=== PATIENT | male | born 1955 | race Caucasian/White ===

== ENCOUNTER → 2016-11-09 | Outpatient (CLI) | payer OTHER ==
[~2016-11-09] MED LIST: AMOX875T PO; DIAZ10TA PO; DLD2 PO; LIDO5DIS10; [UNRECOGNIZED DRUG - OTHER] TOP; tylenol sinus PO
--- NOTE | 2016-11-09 16:39 | DIAGNOSTIC IMAGING REPORT ---
LUMBAR SPINE MRI HISTORY: BILATERAL LEG PAIN TECHNIQUE: Multiplanar multisequence MRI of the lumbar spine was performed without the use of contrast. COMPARISON: Lumbar spine MRI 06/25/2014. FINDINGS: For the purpose of the report the L5-S1 disc space will be located on axial image 37 of 39. This is consistent with the prior report. L5 is demonstrated to be a transitional vertebra with sacralization of the transverse processes. The conus terminates at T12. Posterior decompression and posterior and anterior fusion from L1 through L3 is again noted. This remains unchanged. No fracture or subluxation. Mild to moderate disc space narrowing at L4-L5 is again noted. Mild posterior soft tissue edema from the L2-L4 levels remains unchanged. There is again noted a 2 cm cyst within the left kidney. L1-L2: No significant central canal or neural foraminal narrowing. L2-L3: No significant central canal or neural foraminal narrowing. L3-L4: Broad-based posterior disc bulge with facet hypertrophy resulting in mild central canal and mild bilateral neural foraminal narrowing. L4-L5: Broad-based posterior disc bulge with facet hypertrophy resulting in mild central canal and mild bilateral neural foraminal narrowing. L5-S1: No significant central canal or neural foraminal narrowing. IMPRESSION: 1. No change compared to the 2013 examination. 2. Fusion hardware from L1 through L3. 3. Mild central canal and mild bilateral neural foraminal narrowing at L3-L4 and L4-L5 is again noted. Electronically signed by: Alban Hurst M.D. 11/09/2016 4:37 PM Dictated Date/Time: 11/09/2016 4:17 PM
== END | disposition home or self-care (01) ==
LOC: C.MRI 15:25
PROVIDERS: ATTEND Orthopaedic Surgery Orthopaedic Surgery of the Spine
DX: M79.604 Pain in right leg (principal)

== ENCOUNTER 2020-02-22 13:51 | Observation (INO) ==
[2020-02-22] MEDS ORDERED: NALOXONE HCL 0.4 MG/1 ML VIAL/CARP ONE (14:01)
--- NOTE | 2020-02-22 14:10 | CT Scan Report ---
CT SCAN OF THE BRAIN WITHOUT IV CONTRAST CLINICAL HISTORY: Slurred speech. Difficulty with ambulation. COMPARISON STUDY: No priors. TECHNIQUE: Unenhanced axial CT scan of the brain is performed from the vertex to the skull base. A d ose lowering technique was utilized adhering to the principles of ALARA. CT DOSE: 614.27 mGy.cm FINDINGS: Brain parenchyma: The brain parenchyma is normal in appearance. There is no hemorrhage, mass effect, or evidence of acute territorial ischemia by CT criteria. Bautista-white matter differentiation is preser dorian. No extra-axial fluid collection is seen. Ventricles, sulci, cisterns: Normal in configuration. Intracranial vasculature: The visualized intracranial vasculature at the skull base is normal in appe arance. Calvarium: Unremarkable. Sinuses and mastoids: The visualized paranasal sinuses are clear. The mastoid air cells are well pneu matized. Orbits: The bony orbits are grossly intact. There is evidence of previous left ocular lens surgery. IMPRESSION: There is no hemorrhage, mass effect, or evidence of acute territorial ischemia by CT len caldwell. ACT 112: Negative or not required by law. Electronically signed by: Roel Ribera M.D. 02/22/2020 2:09 PM
[2020-02-22 14:24] LABS: Hematocrit (blood only) 43.5 % (42-52); Hemoglobin 14.9 g/dL (14.0-18.0); Mean Corpuscular Hemoglobin 30.7 pg (25-34); Mean Corpuscular Hgb Conc 34.3 g/dL (32-36); Mean Corpuscular Volume 89.5 fL (80-100); Mean Platelet Volume 9.3 fL (7.4-10.4); Platelet Count 230 K/uL (130-400); RDW Coefficient of Variation 13.2 % (11.5-14.5); RDW Standard Deviation 43.3 fL (36.4-46.3); Red Blood Count 4.86 M/uL (4.7-6.1); White Blood Count 7.07 K/uL (4.8-10.8)
--- NOTE | 2020-02-22 14:30 | XRay Report ---
XR chest 1V portable HISTORY: Weakness COMPARISON: Chest 01/23/2020. FINDINGS: The lungs are clear. Cardiac silhouette is normal in size. No pleural effusions. No pneumot horax. IMPRESSION: No acute process. ACT 112: Negative or not required by law. Electronically signed by: Alban Hurst M.D. 02/22/2020 2:29 PM
[2020-02-22 14:33] LABS: iSTAT Ionized Calcium 1.23 mmol/l (1.12-1.32); iSTAT Potassium 4.1 mmol/L (3.3-5.0)
[2020-02-22 14:35] LABS: Partial Thromboplastin Ratio 0.9; Partial Thromboplastin Time 26.5 Seconds (21.0-31.0); Prothrombin Time 10.9 Seconds (9.0-12.0)
[2020-02-22 14:42] LABS: Alanine Aminotransferase 49 U/L (12-78); BUN Creatinine Ratio 12.9 (10-20); Blood Urea Nitrogen 14 mg/dl (7-18); Carbon Dioxide 26 mmol/L (21-32); Chloride 109 mmol/L (98-107); Est GFR (African American) 83.3; Est GFR (Non-African American) 71.9; Glucose 104 mg/dl (70-99); Magnesium 2.2 mg/dl (1.8-2.4); Sodium 141 mmol/L (136-145)
[2020-02-22 14:45] LABS: Albumin Globulin Ratio 1.1 (0.9-2); Alkaline Phosphatase 53 U/L (45-117); Aspartate Aminotransferase 21 U/L (15-37); Bilirubin,Total 0.6 mg/dl (0.2-1); Globulin 3.7 gm/dl (2.5-4.0); Total Protein 7.7 gm/dl (6.4-8.2)
[2020-02-22] MEDS ORDERED: LORazepam 2 MG/4 ML VIAL ONE (14:45)
--- NOTE | 2020-02-22 15:03 | Emergency Department Note ---
Impression & Plan Seizure-like activity, Acute alteration in mental status ED Provider Note NAME: KRISTIAN COLINDRES AGE: 64 SEX: M : 1955 ARRIVES VIA: Walk-In INFORMANT: Patient, ED PROVIDER(S): Juan King DO CHIEF COMPLAINT: Altered mental status HPI: The patient is a 64-year-old male who presented to the emergency department with his significant other via triage for an evaluation of altered mental status. The patient was made a stroke alert in triage and taken directly to CAT scan prior to my evaluation. The patient does have a history of osteomyelitis in his spine. He does take chronic pain medication although he states he is not been taking his pain medication in approximately 1 week. His significant other also gives most of the history and states that the patient has had a work-up for neurologic events in the past. He has had intermittent episodes over the last few months. He has had EEGs as well as MRIs but no cause for his complaints could be found. The patient was in his normal state of health until prior to arrival. He started having episodes of difficulty speaking. He appeared to have spasms on the left side of his body according to his significant other. He also had a very high pulse rate. The patient had questionable seizure activity prior to arrival. Upon arrival to the emergency department in my evaluation he was awake and alert. His strength appeared to be diminished globally and not unilaterally. He denies having any headaches. He states that he "just does not feel right". He complains of an electrical sensation going through his entire body. He has had no recent falls. He denies having any fever cough or chills. ROS: See above HPI for pertinent positives & negatives. A total of 10 systems reviewed and were otherwise negative. PAST MEDICAL HISTORY: See Below PAST SURGICAL HISTORY: See Below FAMILY HISTORY: See Below SOCIAL HISTORY: See Below HOME MEDICATIONS: See Below ALLERGIES: See Below VITALS: See Below PHYSICAL EXAMINATION: GENERAL: The patient is awake and alert. He is very anxious appearing. EYES: The conjunctivae are clear. The pupils are round and reactive. EARS, NOSE, MOUTH AND THROAT: The nose is without any evidence of any deformity. Mucous membranes are moist. Tongue is midline. NECK: The neck is nontender and supple. RESPIRATORY: Normal respiratory effort is noted there is no evidence of wheezing rhonchi or rales CARDIOVASCULAR: Regular rate and rhythm noted there no murmurs rubs or gallops normal S1 normal S2. GASTROINTESTINAL: The abdomen is soft. Abdomen is nontender. MUSCULOSKELETAL/EXTREMITIES: There is no evidence of gross deformity full range of motion is noted in the hips and shoulders. SKIN: There is no obvious evidence of any rash. Trace pedal edema was noted bilaterally. NEUROLOGIC: Patient is awake alert and oriented x3. Healthcare Management strength is symmetric. Patient is able to hold each leg off the bed for greater than 5 seconds but appears to have muscle spasming in both legs when he holds his legs up. There is no facial droop noted. MEDICAL DECISION MAKING: The patient is a 64-year-old male who presented to the emergency department for an evaluation of acute alteration in his mental status. The patient was made a stroke alert from triage and taken directly to CT. I initially discussed his case with the stroke neurologist at [facility] however they felt the patient would not be a candidate for TPA. They did recommend further work-up in the emergency department. The patient was unable to have CT angiography but plain CT did not show any acute disease. The patient's symptoms continue to wax and wane and while he was in the emergency department I feel these were more likely due to a possible seizure disorder. According to his significant other he did have a work-up for seizure in the past including MRI as well as EEG. I discussed the patient's laboratory and radiographic studies with him and his significant other. He was found to have further episodes while he was in the emergency department. For this reason he was treated with Ativan as well as treated with Keppra. I discussed his case with the on-call [facility] hospitalist group. They have agreed to evaluate the patient in the emergency department for further management and disposition. Triage Nursing notes reviewed. Prior medical records reviewed Vital Signs: reviewed and remarkable for no significant abnormalities Differential diagnosis: Infection, dehydration, metabolic abnormality, hypo/hyperglycemia, electrolyte disturbance, anemia, hypoxia, cardiac sources, intracerebral event, toxicologic, neurologic, as well as other pathologies. ER treatment provided: See below Diagnostics interpreted by me: ECG: EKG was obtained in the emergency department. My interpretation is normal sinus rhythm at 80 bpm. There is no ectopy. There is no acute ST segment abnormalities noted. This was compared to a tracing from April [id number]. No significant changes were noted. Cardiac Monitoring: An order was placed for continuous cardiac monitoring. The monitor shows a rate of 85 with sinus rhythm. Laboratory studies: As stated above and show below. Imaging studies: See below Consultation(s): 1415: I discussed this case with the [place] tele-stroke neurologist Dr. Ray. She feels the patient would not be a TPA candidate given the seizure activity as well as the intermittent symptoms recently. She feels the patient may require further inpatient work-up based on our evaluation today. 1600: I discussed this case with Rayna who is on-call for the [facility] hospitalist group. ED COURSE: Procedures: none PDMP:reviewed and no issues Critical Care: None Past Med/Surg History Medical History Benign prostatic hyperplasia (Inactive) Chronic pain [place]nea transplant recipient History of osteomyelitis History of prostatitis S/P ORIF (open reduction internal fixation) fracture Right leg Surgical History H/O inguinal hernia repair History of lumbar spinal fusion Family History Father Thyroid cancer Lung cancer Mother COPD (chronic obstructive pulmonary disease) Social History Smoking Status: Former smoker Tobacco Type: Cigarettes Second Hand Exposure: No; Do You Dip or Chew Tobacco: No; Tobacco Cessation Education Requested by Patient: No Hx Alcohol Use: No Hx Substance Use: No Preferred Language: Senegalese Communication Ability: Effective Beliefs That Will Affect Care: None Current Living Situation: Spouse Other Information That Helps Us Care for You: No Feels Safe at Home: Yes Safety Concerns: Feels Safe At This Time Allergies Allergies Allergy/AdvReac Type Severity Reaction Status Date / Time Iodinated Contrast Media Allergy Intermediate Shortness Unverified 02/22/20 14:22 of Breath Home Meds Home Medications Medication Instructions Recorded Confirmed hydromorphone 2 mg PO QID PRN 01/23/20 02/22/20 prednisolone acetate 1 drp OPL QAM 01/23/20 02/22/20 Smarty Pants Gummies 1 tab PO BID 02/22/20 02/22/20 Results & Data (ED) Vital Signs Vital Signs - 24 hr 02/22/20 13:55 02/22/20 14:10 02/22/20 14:12 Temperature 37 C Temperature Source Oral Pulse Rate 78 85 Pulse Rate from SpO2 Sensor Respiratory Rate 24 20 Blood Pressure 157/95 H Blood Pressure Mean 114 Pulse Oximetry Oxygen Delivery Method Room Air Sepsis Recent Fever Within 48 Hours No Sepsis New/Unexplained Change in Mental Status No Sepsis Action Taken by Nursing No Action Required 02/22/20 14:30 02/22/20 14:58 02/22/20 15:00 Temperature Temperature Source Pulse Rate 77 69 69 Pulse Rate from SpO2 Sensor Respiratory Rate 22 27 H 22 Blood Pressure 136/85 138/84 Blood Pressure Mean 106 102 Pulse Oximetry Oxygen Delivery Method Sepsis Recent Fever Within 48 Hours Sepsis New/Unexplained Change in Mental Status Sepsis Action Taken by Nursing 02/22/20 15:01 02/22/20 15:03 02/22/20 15:30 Temperature Temperature Source Pulse Rate 73 68 Pulse Rate from SpO2 Sensor 68 Respiratory Rate 18 19 Blood Pressure 135/85 Blood Pressure Mean 94 Pulse Oximetry 97 Oxygen Delivery Method Room Air Sepsis Recent Fever Within 48 Hours Sepsis New/Unexplained Change in Mental Status Sepsis Action Taken by Nursing 02/22/20 15:31 Temperature Temperature Source Pulse Rate 69 Pulse Rate from SpO2 Sensor 71 Respiratory Rate 26 H Blood Pressure Blood Pressure Mean Pulse Oximetry 96 Oxygen Delivery Method Sepsis Recent Fever Within 48 Hours Sepsis New/Unexplained Change in Mental Status Sepsis Action Taken by Skilled Nursing Medications Current Medication List: was personally reviewed by me Laboratory Data Attestation: I reviewed the patient's lab results. Result diagrams: 02/22/20 14:12 02/22/20 14:12 Lab Results 02/22/20 02/22/20 02/22/20 Range/Units 14:12 14:12 14:12 WBC 7.07 (4.8-10.8) K/uL RBC 4.86 (4.7-6.1) M/uL Hgb 14.9 (14.0-18.0) g/dL POC Hgb (14.0-18.0) g/dl Hct 43.5 (42-52) % POC Hct (42-52) % MCV 89.5 (80-100) fL MCH 30.7 (25-34) pg MCHC 34.3 (32-36) g/dL RDW Std Deviation 43.3 (36.4-46.3) fL RDW Coeff of Contreras 13.2 (11.5-14.5) % Plt Count 230 (130-400) K/uL MPV 9.3 (7.4-10.4) fL PT 10.9 (9.0-12.0) Seconds INR 1.0 (0.9-1.1) APTT 26.5 (21.0-31.0) Seconds PTT Ratio 0.9 POC Sodium (135-144) mmol/L Sodium 141 (136-145) mmol/L POC Potassium (3.3-5.0) mmol/L Potassium 4.0 (3.5-5.1) mmol/L POC Chloride (101-112) mmol/L Chloride 109 H (98-107) mmol/L Carbon Dioxide 26 (21-32) mmol/L POC Total CO2 (24-31) mmol/L Anion Gap 6.0 (3-11) POC Anion Gap (16-25) mmol/L POC BUN (7-18) mg/dl BUN 14 (7-18) mg/dl Creatinine 1.09 (0.6-1.4) mg/dl POC Creatinine (0.6-1.3) mg/dl Est Cr Clr Drug Dosing Not Reportable Est GFR ( Amer) 83.3 Est GFR (Non-Af Amer) 71.9 BUN/Creatinine Ratio 12.9 (10-20) Glucose 104 H (70-99) mg/dl POC Glucose (other) (70-99) mg/dl Calcium 9.0 (8.5-10.1) mg/dl POC Ioniz Calcium Nina (1.12-1.32) mmol/l Magnesium 2.2 (1.8-2.4) mg/dl Total Bilirubin 0.6 (0.2-1) mg/dl AST 21 (15-37) U/L ALT 49 (12-78) U/L Alkaline Phosphatase 53 (45-117) U/L Total Protein 7.7 (6.4-8.2) gm/dl Albumin 4.0 (3.4-5.0) gm/dl Globulin 3.7 (2.5-4.0) gm/dl Albumin/Globulin Ratio 1.1 (0.9-2) 07/24/20 Range/Units 14:20 WBC (4.8-10.8) K/uL RBC (4.7-6.1) M/uL Hgb (14.0-18.0) g/dL POC Hgb 15.0 (14.0-18.0) g/dl Hct (42-52) % POC Hct 44 (42-52) % MCV (80-100) fL MCH (25-34) pg MCHC (32-36) g/dL RDW Std Deviation (36.4-46.3) fL RDW Coeff of Contreras (11.5-14.5) % Plt Count (130-400) K/uL MPV (7.4-10.4) fL PT (9.0-12.0) Seconds INR (0.9-1.1) APTT (21.0-31.0) Seconds PTT Ratio POC Sodium 142 (135-144) mmol/L Sodium (136-145) mmol/L POC Potassium 4.1 (3.3-5.0) mmol/L Potassium (3.5-5.1) mmol/L POC Chloride 103 (101-112) mmol/L Chloride (98-107) mmol/L Carbon Dioxide (21-32) mmol/L POC Total CO2 22 L (24-31) mmol/L Anion Gap (3-11) POC Anion Gap 22.0 (16-25) mmol/L POC BUN 15 (7-18) mg/dl BUN (7-18) mg/dl Creatinine (0.6-1.4) mg/dl POC Creatinine 1.0 (0.6-1.3) mg/dl Est Cr Clr Drug Dosing Est GFR ( Amer) Est GFR (Non-Af Amer) BUN/Creatinine Ratio (10-20) Glucose (70-99) mg/dl POC Glucose (other) 109 H (70-99) mg/dl Calcium (8.5-10.1) mg/dl POC Ioniz Calcium Nina 1.23 (1.12-1.32) mmol/l Magnesium (1.8-2.4) mg/dl Total Bilirubin (0.2-1) mg/dl AST (15-37) U/L ALT (12-78) U/L Alkaline Phosphatase (45-117) U/L Total Protein (6.4-8.2) gm/dl Albumin (3.4-5.0) gm/dl Globulin (2.5-4.0) gm/dl Albumin/Globulin Ratio (0.9-2) Administered Medications Discontinued Medications Levetiracetam 2,000 mg/ Sodium (Chloride) 270 mls @ 999 mls/hr IV NOW STA Stop: 02/22/20 15:07 Last Infusion: 02/22/20 15:48 Dose: 0 mls/hr Documented by: [id number] Admin: 02/22/20 15:23 Dose: 999 mls/hr Documented by: [id number] Lorazepam (Ativan) Confirm Administered Dose 2 mg .ROUTE .STK-MED ONE Stop: 02/22/20 14:46 Last Admin: 02/22/20 14:51 Dose: 1 mg Documented by: [id number] Miscellaneous (Patient's Height And/Or Weight Needed) 1 ea N/A Q2H KENZIE Stop: 03/23/20 17:59 Last Admin: 02/22/20 18:06 Dose: Not Given Documented by: [id number] Imaging Data Radiologist's Impression: CT SCAN OF THE BRAIN WITHOUT IV CONTRAST CLINICAL HISTORY: Slurred speech. Difficulty with ambulation. COMPARISON STUDY: No priors. TECHNIQUE: Unenhanced axial CT scan of the brain is performed from the vertex to the skull base. A dose lowering technique was utilized adhering to the principles of ALARA. CT DOSE: 614.27 mGy.cm FINDINGS: Brain parenchyma: The brain parenchyma is normal in appearance. There is no hemorrhage, mass effect, or evidence of acute territorial ischemia by CT cri teria. Bautista-white matter differentiation is preserved. No extra-axial fluid collection is seen. Ventricles, sulci, cisterns: Normal in configuration. Intracranial vasculature: The visualized intracranial vasculature at the skull base is normal in appearance. Calvarium: Unremarkable. Sinuses and mastoids: The visualized paranasal sinuses are clear. The mastoid air cells are well pneumatized. Orbits: The bony orbits are grossly intact. There is evidence of previous left ocular lens surgery. IMPRESSION: There is no hemorrhage, mass effect, or evidence of acute territorial ischemia by CT criteria. ACT 112: Negative or not required by law. Electronically signed by: Roel Ribera M.D. 02/22/2020 2:09 PM Dictated: 02/22/20 1405 Transcribed: 02/22/20 1405 XR chest 1V portable HISTORY: Weakness COMPARISON: Chest 01/23/2020. FINDINGS: The lungs are clear. Cardiac silhouette is normal in size. No pleural effusions. No pneumothorax. IMPRESSION: No acute process. ACT 112: Negative or not required by law. Electronically signed by: Alban Hurst M.D. 02/22/2020 2:29 PM Dictated: 02/22/20 1423 Transcribed: 02/22/20 1423 Blood Pressure Blood Pressure Findings: Normal blood pressure Discharge Plan Visit Data *Final* Discharge Date/Time: 02/22/20 17:18 Chief Complaint: Neuro Symptoms/Deficit Stated Complaint: POSSIBLE STROKE ED Provider: Juan King Discharge Problem: Seizure-like activity, Acute alteration in mental status Patient Disposition: Admitted As Inpatient Condition: Good Discharge Instructions Interventions: ED Discharge Assessment Last Done: 02/22/20 17:18
--- NOTE | 2020-02-22 16:12 | Electrocardiogram Report ---
Test Reason : Blood Pressure : / mmHG Vent. Rate : 080 BPM Atrial Rate : 080 BPM P-R Int : 180 ms QRS Dur : 086 ms QT Int : 348 ms P-R-T Axes : -03 070 029 degrees QTc Int : 401 ms Normal sinus rhythm Normal ECG When compared with ECG of 23-APR-2005 12:16, No significant change was found Confirmed by Juan Styles ([id number]) on 02/22/2020 4:12:23 PM Referred By: MD ARRIETA Confirmed By:Juan Styles
--- NOTE | 2020-02-22 17:11 | History & Physical Report ---
Date of Service February 22, 2020 Assessment & Plan (1) Seizure-like activity: -Admit to telemetry -Patient presenting from home for evaluation of seizure-like activity; " episodes" have been ongoing for the past few months however today was the first time patient had altered mental status -Outpatient work-up has included echo, EEG, brain MRI which were all unremarkable -Head CT today negative for acute findings -? Seizure disorder vs. anxiety vs. pseudoseizure -Received IV Keppra 2 g IV in the ED, will continue with Keppra 1 g IV twice daily for now -Seizure precautions -IV Ativan for breakthrough seizure -Neurology consult, case discussed with Dr. Chavarria who recommends repeating EEG and MRI (2) DVT prophylaxis: -SQ Lovenox History of Present Illness Chief Complaint: Seizure-like activity Primary Care Provider: Bashir Sanders DO 64-year-old male with PMH lumbar spinal fusion complicated by osteomyelitis in 2002, BPH, chronic pain, and other problems listed below who presents the ED for evaluation of seizure-like symptoms. Patient has been having " episodes" for the past few months. Patient reports his was diagnosed with influenza A in September and he shortly after developed similar symptoms and was suspected to have the same. Patient reports that since that time, he has been having episodes that he describes as a vibrating sensation all over his body followed by palpitations and hypertension, electrical shocks scattered over his body, and severe chills. Patient also notes having episodes while sleeping that he ends up on the floor. Patient denies any loss of bowel or bladder function. No tongue biting. Typically he has not had any altered mental status until today. Patient reports symptoms with sometimes follow eating. He felt as though maybe he had an allergy to barley malt. He is also seen in association with physical exertion. Patient had been on chronic oxycodone until August 2019 when this was changed to Dilaudid. Patient reports he typically only uses medication 2-3 times per week. He has not had any in about 1 week. He also had been on long- term Klonopin which was discontinued in August as well. Patient notes taking 1 dose of Klonopin a couple of weeks ago and reports he had no symptoms for 1 week. Today, patient reports he had climbed the stairs several times. Patient reports he does not remember anything following and his provides the rest of the history. She reports that her started to twitch his head to the left and became stiff all over. She reports his eyes had a glazed over look and he would not respond to her. She reports this lasted for about 10 minutes and then patient was able to talk to her. Patient then presented to the ED for further evaluation. He then had an additional 3-4 similar episodes while in the ER. Patient received Ativan 2 mg IV and was loaded with Keppra 2 g IV. Patient currently reports complete resolution of symptoms. Of note, patient's outpatient work-up has included echocardiogram, EEG (02/14/2020), brain MRI (02/18/2020) which were all unremarkable. Allergies Allergy/AdvReac Type Severity Reaction Status Date / Time Iodinated Contrast Media Allergy Intermediate Shortness Unverified 02/22/20 14 :22 of Breath Home Medications Home Medications Medication Instructions Recorded Confirmed Type hydromorphone 2 mg PO QID PRN 01/23/20 02/22/20 History prednisolone acetate 1 drp OPL QAM 01/23/20 02/22/20 History Smarty Pants Gummies 1 tab PO BID 02/22/20 02/22/20 History Past Med/Surg History Medical History Benign prostatic hyperplasia (Inactive) Chronic pain Cornea transplant recipient History of osteomyelitis History of prostatitis S/P ORIF (open reduction internal fixation) fracture Right leg Surgical History H/O inguinal hernia repair History of lumbar spinal fusion Family History Father Thyroid cancer Lung cancer Mother COPD (chronic obstructive pulmonary disease) Social History Smoking Status: Former smoker Tobacco Type: Cigarettes Second Hand Exposure: No; Do You Dip or Chew Tobacco: No; Tobacco Cessation Education Requested by Patient: No Hx Alcohol Use: No Hx Substance Use: No Preferred Language: Croatian Communication Ability: Effective Beliefs That Will Affect Care: None Current Living Situation: Spouse Other Information That Helps Us Care for You: No Feels Safe at Home: Yes Safety Concerns: Feels Safe At This Time Review of Systems Review of Systems: ROS per HPI, all other systems reviewed and negative Physical Exam Constitutional: WD/WN, vitals as above Eyes: PERRL, conjunctivae normal, anicteric sclerae ENMT: external ear and nose normal, oropharynx normal Respiratory: normal respiratory effort, lungs clear to auscultation Cardiovascular: Rate/Rhythm: regular rate and regular rhythm Vessels: normal peripheral pulses Extremities: no edema Gastrointestinal (Abdomen): normal bowel sounds, soft, nontender, no hepatosplenomegaly Musculoskeletal: no cyanosis or clubbing, extremities motor strength 5/5 Skin: no rashes, warm and dry Neurologic: PERRL, EOMI, accommodation nl, no face palsy, no dysarthria moves all extremities and awake; no focal motor deficits Motor/Sensory: no pronator drift Cranial Nerves: tongue midline Coordination: normal [id number] test and normal enhr-ah-[id number] test Psychiatric: A+Ox3, euthymic affect Results & Data Results & Data ([facility]) Vital Signs (Past 12 Hours) Vital Signs Temp Pulse Resp BP 02/22/20 15:01 73 18 02/22/20 15:00 69 22 138/84 02/22/20 14:58 69 27 H 136/85 02/22/20 14:30 77 22 02/22/20 14:12 85 20 02/22/20 14:10 78 24 157/95 H 02/22/20 13:55 37 C Laboratory Results Short CBC 02/22/20 Range/Units 14:12 WBC 7.07 (4.8-10.8) K/uL Hgb 14.9 (14.0-18.0) g/dL Hct 43.5 (42-52) % Plt Count 230 (130-400) K/uL BMP 02/22/20 14:12 Sodium 141 Potassium 4.0 Chloride 109 H Carbon Dioxide 26 BUN 14 Creatinine 1.09 Glucose 104 H Calcium 9.0 Liver Function 02/22/20 Range/Units 14:12 Total Bilirubin 0.6 (0.2-1) mg/dl AST 21 (15-37) U/L ALT 49 (12-78) U/L Alkaline Phosphatase 53 (45-117) U/L Albumin 4.0 (3.4-5.0) gm/dl Diagnostic Findings CXR IMPRESSION: No acute process. HEAD CT IMPRESSION: There is no hemorrhage, mass effect, or evidence of acute territorial ischemia by CT criteria. Code Status & VTE Plan VTE Prophylaxis Plan VTE Prophylaxis will be ordered: Yes Supervising Physician Co-Signing Physician Notes Attending addendum The patient was seen and examined in telemetry unit He has been complaining of seizure-like activities for a while Most of the time each episode of seizure-like activity happens to be after a meal A few of the episodes happened to be at night with falls from his bed without significant injury A typical episode starts in the head and then gradually involves the whole of the body in the form of shaking inside No loss of consciousness and no self injury and no postictal state Has been feeling a lot better following administration of Keppra in the emergency room On examination No apparent distress at rest Hemodynamically stable Chest-clear to auscultate bilaterally Heart-S1-S2, regular Abdomen-benign Extremities-negative for any edema 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
[2020-02-22] MEDS ORDERED: HYDROmorphone HCL 2 MG TAB PO PRN (17:39)
[2020-02-22] MEDS ORDERED: ACETAMINOPHEN 325 MG TAB PO PRN (17:39)
[2020-02-22] MEDS ORDERED: LORazepam 1 MG/2 ML VIAL IV PRN (17:39)
[2020-02-22] MEDS ORDERED: PATIENT'S HEIGHT AND/OR WEIGHT NEEDED SCH (18:00)
[2020-02-22] MEDS ORDERED: GADOBUTROL 65ML VIAL IV PRN (20:10)
--- NOTE | 2020-02-22 20:50 | Magnetic Resonance Report ---
MRI OF THE BRAIN COMBO CLINICAL HISTORY: Seizure. COMPARISON STUDY: CT of the brain dated 02/22/2020. TECHNIQUE: MRI of the brain was performed utilizing various T1 and T2-weighted sequences in the axial , sagittal, and coronal planes. Contrast-enhanced sequences were acquired following the administratio n of 9.5 cc of Gadavist. The examination is performed using the seizure protocol. FINDINGS: Brain parenchyma: There is mild subcortical and periventricular microangiopathic disease. There is no hemorrhage or mass effect. There is no restricted diffusion to suggest acute ischemia. No enhancing mass lesion is identified on the postcontrast images. Bautista-white matter differentiation is preserved. No extra-axial fluid collection is seen. The hippocampi are normal and symmetric. The cerebellar ton sils are normal in configuration. Ventricles, sulci, and cisterns: Normal in configuration. Pituitary and sella: Unremarkable. Intracranial vasculature: Normal flow voids are maintained at the skull base. Orbits: The bony orbits are grossly intact. Orbital contents are normal in appearance noting a left o cular lens implant. Sinuses and mastoids: Clear. Calvarium: Unremarkable. Cervical cord: Partially visualized cervical spinal cord is normal in morphology and signal intensity . IMPRESSION: No acute intracranial abnormality. ACT 112: Negative or not required by law. Electronically signed by: Roel Ribera M.D. 02/22/2020 8:48 PM
[2020-02-22] MEDS: levETIRAcetam 1,000 MG in 0.9 % SODIUM CHLORIDE 100 ML IV SCH (21:01)
[2020-02-22] MEDS: ENOXAPARIN INJ 40 MG/0.4 ML SYR SQ SCH (21:02)
[2020-02-23 06:07] LABS: Hematocrit (blood only) 42.8 % (42-52); Hemoglobin 14.5 g/dL (14.0-18.0); Mean Corpuscular Hemoglobin 30.4 pg (25-34); Mean Corpuscular Hgb Conc 33.9 g/dL (32-36); Mean Corpuscular Volume 89.7 fL (80-100); Mean Platelet Volume 9.3 fL (7.4-10.4); Platelet Count 219 K/uL (130-400); RDW Standard Deviation 42.9 fL (36.4-46.3); Red Blood Count 4.77 M/uL (4.7-6.1); White Blood Count 6.84 K/uL (4.8-10.8)
[2020-02-23 06:47] LABS: BUN Creatinine Ratio 13.2 (10-20); Calcium 8.4 mg/dl (8.5-10.1); Creatinine Clr Calc Pharmacy 88.3 ml/min; Est GFR (African American) 93.6; Est GFR (Non-African American) 80.7; Potassium 4.1 mmol/L (3.5-5.1)
--- NOTE | 2020-02-23 08:59 | Neurology Consultation ---
Date of Consultation February 23, 2020 Assessment & Plan (1) Seizure-like activity: Gui Webster is a 64 yo man w/ PMH of chronic pain on opiates, history of osteomyelitis of the spine, history of prostatitis, BPH, history of ORIF on right leg and recent work-up by [facility] for syncope who presents to [facility] for altered mental status and possible seizures. # Seizure like activity: strong suspicion for PNES/pseudoseizures particularly given semiology as witnessed by primary team, less likely frontal lobe epilepsy. There is also some c/f benzo seeking behavior given that he repeatedly asked for ativan or klonopin and endorsed that only this was helping with his symptoms of "internal tremors"/vibration sensation. - prolonged EEG captured one event; no EEG correlate suggesting PNES - semiology is now c/w seizure, but he did note to 2 people that he had a heada maría a/w events. Recommend starting depakote 250mg bid as this could help with any migrainous features - he needs outpatient neurology follow up (can be [facility] or [facility]) and referral to the EMU - if he re-presents to the ED for this same complaint in the near future, recommend that he be transferred to higher level of care for continuous EEG evaluation for spell classification Thank you for this interesting consult. Plan of care discussed with primary team. 120 minutes was spent in the care of this patient, including discussion with patient and primary team. Please call or text with questions. He is safe from a neurological standpoint for discharge. (2) History of osteomyelitis: History of Present Illness Attending Physician: Monty Blankenship MD History of Present Illness Gui Webster is a 64 yo man w/ PMH of chronic pain on opiates, history of osteomyelitis of the spine, history of prostatitis, BPH, history of ORIF on right leg and recent work-up by [facility] for syncope who presents to [facility] for altered mental status and possible seizures. Reports that he has a remote h/o ?arrest while having back surgery at [place] in early . Developed tics afterwards of head twisting that were eventually treated with klonopin. Reports that he was on this for 15 years or so until he was weaned off of it this past winter/spring starting in August 2019. He reports having flu in September 2019, after which he noted new onset episodes as described below. This vary in frequency and can occur multiple times per week and last anywhere from minutes to hours or days. He did have 3-4 episodes in the ED for which he received ativan and keppra; he reports that once the ativan wore off, he started to notice the vibration sensation and coldness going through his body again, despite the keppra. When interviewed this morning, kept asking to have ativan or klonopin as the "other medication" was not helping him much. Per report, Dr Blankenship witnessed one typical episode this afternoon where he closed his eyes, tightened his hands/arms/legs, with no loss of bowel/bladder/tongue biting noted. He did not respond to commands during the event and did not have a clear post-ictal period afterward. Krzysztof was unable to open his eyes or hands manually during the event. He currently has 1 type of spell (described in detail below). His current medications include: none. He has previously tried: klonopin (reports this was for tics, weaned off in August 2019) Most recent EEG (01/2020): normal awake EEG Prior MRI brain: Independently reviewed, MRI brain from 02/22/20 unremarkable, mild SVID, no acute or chronic infarcts, encephalomalacia or mesial temporal sclerosis noted. Prior EMU stay: No Seizure risk factors: unable to assess as he was so tangential during interview Unknown: , complications, NICU stay, IEP or intellectual disability as a child, history of meningitis or encephalitis, recurrent TBI with loss of consciousness, family history of epilepsy, history of febrile seizures, history of stroke or brain malformation, congenital epilepsy syndrome, history of drug or alcohol abuse Seizure description: 1) "Seizure": Description: feels vibration that starts in his head and spreads throughout his body (internal tremor) -> whole body cold sensation a/w blurry vision, palpitations, clamminess -> eyes closed, stiffening of his arms and legs for several minutes, no loss of bowel/bladder/tongue bitting, no clear post ictal period Frequency: once per week to multiple times per day Any recent changes: increasing frequency Triggers: malt barley Allergies Allergy/AdvReac Type Severity Reaction Status Date / Time Iodinated Contrast Media Allergy Intermediate Shortness Unverified 02/22/20 14:22 of Breath Home Medications Home Medications Medication Instructions Recorded Confirmed Type hydromorphone 2 mg PO QID PRN 01/23/20 02/22/20 History prednisolone acetate 1 drp OPL QAM 01/23/20 02/22/20 History Smarty Pants Gummies 1 tab PO BID 02/22/20 02/22/20 History Patient History Medical History Benign prostatic hyperplasia (Inactive) Chronic pain Cornea transplant recipient History of osteomyelitis History of prostatitis S/P ORIF (open reduction internal fixation) fracture Right leg Surgical History H/O inguinal hernia repair History of lumbar spinal fusion Family History Father Thyroid cancer Lung cancer Mother COPD (chronic obstructive pulmonary disease) Social History Smoking Status: Former smoker Tobacco Type: Cigarettes Second Hand Exposure: No; Do You Dip or Chew Tobacco: No; Tobacco Cessation Education Requested by Patient: No Hx Alcohol Use: No Hx Substance Use: No Preferred Language: Azeri Communication Ability: Effective Beliefs That Will Affect Care: None Current Living Situation: Spouse Other Information That Helps Us Care for You: No Feels Safe at Home: Yes Safety Concerns: Feels Safe At This Time Review of Systems Review of Systems: 14 point review of systems completed and negative except as in HPI. Exam (Neuro) Physical Exam: General Exam: GEN: NAD, sitting in bed. HEENT: No conjunctival injection, no rhinorrhea. CV: RRR, no peripheral edema PULM: Nonlabored respirations on room air. Neuro Exam: MS: Awake and Alert. Oriented to person, place, and date. Speech fluent and appropriate without dysarthria or paraphasic errors. Language intact including naming, comprehension, repetition. Cognition and memory grossly intact. Attention intact. No neglect. +tangential, grandiose thinking CN: Visual [place] full. No extinction to double simultaneous stimuli. No optic disc edema on fundoscopic exam. PERRLA OU. EOMI without nystagmus. Facial sensation intact to LT. Facial muscles full and symmetric. Hearing intact to conversation. Uvula midline with symmetric palatal elevation. Shoulder shrug normal. Tongue midline. MOTOR: Normal bulk and tone. No pronator drift. BUE strength 5/5 at deltoids, biceps, triceps, wrist flexors and extensors, and hand grasp bilaterally. BLE strength 5/5 at iliopsoas, hamstrings, quadriceps, tibialis anterior, and gastrocnemius bilaterally. REFLEXES: 1+ at biceps, triceps, brachioradialis, 1+ patella and absent Achilles bilaterally. Flexor plantar responses bilaterally. SENSORY: Intact to LT without extinction to double simultaneous stimuli. Vibration and pinprick intact throughout. COORDINATION: No dysmetria or ataxia on [id number] bilaterally. Normal Annel bilaterally. GAIT: deferred given physical status Results & Data ([facility]) Vital Signs (Past 12 Hours) Vital Signs Temp Pulse Resp BP Pulse Ox 02/23/20 08:13 36.4 C L 91 H 18 114/74 97 02/23/20 04:00 36.4 C L 70 18 120/79 96 02/22/20 23:48 36.5 C 77 18 130/81 96 PG Care Time/CCT Total # of Minutes Spent Total Time Spent with Patient: Total time spent is greater than 50% in coordination of care (as documented) at patient's floor/unit and/or counseling patient: Coding Level of Care Code 60404 Inpt Consult Level 5 Diagnoses Seizure-like activity R56.9 History of osteomyelitis Z87.39
[2020-02-23] MEDS: levETIRAcetam 1,000 MG in 0.9 % SODIUM CHLORIDE 100 ML IV SCH (09:21)
[2020-02-23] MEDS: prednisoLONE acetate 1% OP SUSP 5 ML BTL OP SCH (09:22)
[2020-02-23] MEDS ORDERED: lamoTRIgine 25 MG TAB PO SCH (10:15)
--- NOTE | 2020-02-23 13:27 | Psychiatric Consultation ---
Date of Consultation February 23, 2020 Impression / Recommendations Impression Dr. Blaise Golden was directly involved in review and discussion of the patient's case and participated in medical decision making regarding treatment recommendations. RECOMMENDATIONS: 02/22 - Psychiatric consultation requested by primary hospitalist team to evaluate patient for generalized anxiety. Pt admits to anxiety, but claims it is situational and related to recent medical complications. - Agree with recommendation for further neurological work-up. Patient's seizure-like events are reportedly being triggered by specific meals and heat/exercise. While there may be an atypical presentation to these episodes, psychogenic non-epileptic seizures are a diagnosis of exclusion and full neurological evaluation with continuous EEG monitoring would be recommended. Additional recommendations per neurology. - If no concern for abuse potential or contraindications present, could consider standing order for low-dose clonazepam for seizure prophylaxis and assist with any situational anxiety symptoms. Will defer this decision to primary team and neurology after patient's EEG is completed. - Supportive psychiatric recommendations at this time include utilization of prn melatonin to assist with stabilization and emphasizing regular sleep patterns. Also discussed potential to utilize low-dose buspirone for anxiety on an as needed basis (if not pursuing standing clonazepam as above), with potential to schedule the medication if beneficial. There is no criteria at this time to diagnose a formal generalized anxiety disorder, as both patient and deny anxiety outside of the context of these seizure-like events. Outpatient observations for the presence of a formal anxiety disorder can be completed once patient is more stable medically. - Please reach out to our service with any additional questions or updates. Psych History Identifying Data 64-year-old male admitted medically on 02/22/2020 with reported seizure-like activity. Pt admits to episodes of similar activity for several months, with unremarkable outpatient work-up but not resolution of symptoms. Psychiatric consultation requested by primary hospitalist team to evaluate patient for anxiety. Chief Complaint "I've just been having these episodes of seizures. They were gradual at the beginning, but have gotten progressively worse since September." History of Present Illness Gui Webster is a 64-year-old male admitted medically on 02/22/2020 after presenting to the ED follow-up seizure-like activity. It is reported that these events have been ongoing for several months, and work-up on an outpatient basis has been unremarkable. Pt was admitted for further work-up and psychiatric consultation was requested by primary hospitalist team for anxiety. Pt's case was reviewed with psychiatric nurse liaison, who initially spoke with patient and . Pt is cooperative with psychiatric assessment. His , Yulia, is present in the room and provides collateral information with patient's verbal consent. Pt shares with this provider that he began having episodes of strange sensations leading to seizure-like activity back in 09/2019. Pt states that symptoms were "gradual" at first, but have been worsening since that time. Pt admits to being a "type-A person" but otherwise denies anxiety at baseline. At this time, he and his report only anxiety related to these recent seizure-like events. Pt states these events have contributed to poor sleep. At this time, patient believes triggering events include eating meals containing certain foods/ingredients and exercise/heat. He reports some unusual sensations beginning prior to the seizure events - "feeling cold all of a sudden", "vibrating", "tachycardia", "head-popping", and he reports feeling tired afterward. Pt states that he has had several seizure-like events that have woken him from sleep. Pt denies a specific history of anxiety, but does admit to having seen a psychiatrist between [id number]. He reports low tolerance for new medications and reports that clonazepam was prescribed, not for psychiatric indications, but for "muscle spasms and back pain." Pt reports taking clonazepam for the past 15 years, and states the medication was discontinued in 08/2019. He does not specifically verbalize any withdrawal symptoms since stopping the medication, but states "it's clearly been masking all of this." Pt has numerous questions about medications and some rather elaborate theories about what may be causing these events. At one point, patient does mention feeling as though a "seizure" is about to occur, and states "I was supposed to tell the nurses so they could page the doctor." This provider offered several times to end our interview at this point so nursing/primary attending could be notified; however, he continued to talk about his symptoms and ask questions about various medications. Pt did suddenly demonstrate seizure-like, myoclonic activity of his neck, shoulder, bilateral arms, and even ankles/feet. This provider pressed call cruz and remained in the room to observe the event. Due to patient's scheduled EEG, no medication was administered. This provider attempted to engage patient in conversation during the event. After some hesitation, he was able to at least respond with his correct name, but did not respond to any additional questions asked by this provider. The event lasted about 45 seconds - 1 minute, before symptoms ended. Pt did become emotionally following the event, crying and repeatedly stating "I'm sorry, I'm sorry" and "what's wrong with me?" Primary attending was paged and was able to arrive shortly after the conclusion of the episode. Case was discussed further at that point. Pt denied additional needs or concerns. Past Psychiatric History Outpatient Services: None presently; previously seen by Dr. Gallo from 2004 - 2008 Previous Psych Admissions: None History of Previous Suicide Attempt: No Past Medication Trials: Per patient reports: Effexor and Klonopin (15 years). Allergies Allergy/AdvReac Type Severity Reaction Status Date / Time Iodinated Contrast Media Allergy Intermediate Shortness Unverified 02/22/20 14:22 of Breath Home Medications Home Medications Medication Instructions Recorded Confirmed Type hydromorphone 2 mg PO QID PRN 01/23/20 02/22/20 History prednisolone acetate 1 drp OPL QAM 01/23/20 02/22/20 History Smarty Pants Gummies 1 tab PO BID 02/22/20 02/22/20 History Family History No known family history of psychiatric diagnoses. Substance Abuse History Admits he is a former smoker. Denies use of other illicit substances. Personal History Living Arrangements: Home (with ) Highest Grade Completed: College (Degree in Accounting) Marital Status: (to of 36 years) Number Of Children: 2 adult children, 2 grandchildren Beliefs That Will Affect Care: None History of Legal Problems: Denied Psychological Trauma History Comment: Denied Patient History Medical History Benign prostatic hyperplasia (Inactive) Chronic pain Cornea transplant recipient History of osteomyelitis History of prostatitis S/P ORIF (open reduction internal fixation) fracture Right leg Surgical History H/O inguinal hernia repair History of lumbar spinal fusion Family History Father Thyroid cancer Lung cancer Mother COPD (chronic obstructive pulmonary disease) Social History Smoking Status: Former smoker Tobacco Type: Cigarettes Second Hand Exposure: No; Do You Dip or Chew Tobacco: No; Tobacco Cessation Education Requested by Patient: No Hx Alcohol Use: No Hx Substance Use: No Preferred Language: Yi Communication Ability: Effective Beliefs That Will Affect Care: None Current Living Situation: Spouse Other Information That Helps Us Care for You: No Feels Safe at Home: Yes Safety Concerns: Feels Safe At This Time Physical Exam Psychiatric: Orientation: alert, oriented x 3 and cooperative Apperance: appropriately dressed, appropriately groomed and appeared stated age Overweight-appearing male, laying in bed in no acute distress initially. Pt is appropriately dressed for setting, wearing a hospital gown with gym shorts underneath. He is appropriately and neatly groomed. Wearing corrective lenses. Level of hygiene and hydration appear appropriate. Eye Contact: good eye contact (with the exception of his seizure-like event) For most of encounter, patient demonstrated normal motor movements. Pt did experience a seizure-like event during our interview. Initially, patient's eyes were closed and he began to demonstrate myoclonic jerking of his neck, followed by contraction of his arms to his chest and jerking of hands and arms as well. Intermittently, patient's legs were observed to be more rigid with occasional muscle contractions of his feet. Speech: normal rate/rhythm/volume of speech (rambling, hyperverbal; but not necessarily pressured or rapid) Affect: euthymic affect Mood: + anxious mood ("This is anxiety-provoking, it's infuriating") Thought Process: goal directed thought process and + perseveration (developing complex theories to explain his seizure-like events) Thought Content: reality based without delusions; not paranoid, no hopelessness and no worthlessness Suicidal Thoughts: denies suicidal thoughts and denies suicidal intent Homicidal Thoughts: denies homicidal thoughts Hallucinations: no auditory hallucinations and no visual hallucinations Cognition: recent memory grossly intact, attention grossly intact and language grossly intact Estimated Intelligence: consistent with education level Insight: + fair insight Judgement: + fair judgement Vital Signs (Past 24 Hours): Last Vital Signs Temp 36.7 C 02/23/20 12:12 Pulse 78 02/23/20 12:12 Resp 18 02/23/20 12:12 BP 109/70 02/23/20 12:12 Pulse Ox 95 02/23/20 12:12 Review of Systems Constitutional: reports fatigue, poor sleep for the past week Cardiovascular: reports episodes of tachycardia "prodromal" to seizure-like activity Respiratory: denied Gastrointestinal: denied Neurological: reports numerous symptoms which patient believes to be associated with seizure-like events. Pt reports the following have occurred intermittently today: head ache/popping, tingling/popping of upper and lower extremities, Psychiatric: [denies symptoms other than stated above] Total of at least 10 systems reviewed, pertinent positives as above and in HPI. Results & Data (PSY) Medications Administered Enoxaparin Sodium (Lovenox) 40 mg SQ HS [facility] Stop: 03/23/20 20:59 Last Admin: 02/22/20 21:02 Dose: 40 mg Documented by: [id number] Gadobutrol (Gadavist 65ml) 9.5 ml IV ONCE PRN PRN Reason: Interaction Checking Stop: 02/26/20 20:09 Last Admin: 02/22/20 20:11 Dose: 9.5 ml Documented by: [id number] Lorazepam (Ativan) 1 mg in 2 mls @ 2 mls/min IV Q4H PRN PRN Reason: seizure Stop: 03/23/20 17:38 Last Admin: 02/22/20 23:18 Dose: 2 mls/min Documented by: [id number] Lamotrigine (Lamictal) 25 mg PO QAM [facility] Stop: 03/24/20 10:14 Last Admin: 02/23/20 10:37 Dose: 25 mg Documented by: [id number] Prednisolone Acetate (Pred Forte 1%) 1 drops OP [facility] Stop: 03/24/20 08:59 Last Admin: 02/23/20 09:22 Dose: 1 drops Documented by: [id number] Coding Level of Care Code 15303 [facility] Intl Hosp Care Lvl 3
--- NOTE | 2020-02-23 15:22 | Hospitalist Progress Note ---
Date of Service February 23, 2020 Assessment & Plan (1) Seizure-like activity: -Patient presenting from home for evaluation of seizure-like activity; " episodes" have been ongoing for the past few months however today was the first time patient had altered mental status -Outpatient work-up has included echo, EEG, brain MRI which were all unremarkable -On episode observed by me this afternoon (episodes of headache usually on the left side followed by flexural stiffness involving upper and lower extremities , neck stiffness with bending to one side and tightly closed eyes with possible loss of consciousness. Last for 30seconds to 45 seconds. Feels tired following that without any typical post ictal state. No self injury and no incontinence during these episodes.) -CT of the head and MRI of the head have been negative for any significant findings -Could be secondary to pseudoseizure, seizure disorder, generalized anxiety disorder, panic attacks -Episode is triggered my consuming malt Barley- has an appointment with [employer] as an op -Received IV Keppra 2 g IV in the ED and this was continued at 1 g IV twice daily until this morning of 02/23/2020 -Seizure precautions -[facility] neurologist Dr. Chavarria cannot see this patient -[facility], appreciate input and recommendation -Keppra has been discontinued and Lamictal was chosen and later on Depakote to 250 mg IV twice daily as suggested -No more Ativan -EEG for 1 hour -If there is no improvement of his condition,most likely he will be transferred to [place] as per the (2) History of osteomyelitis: History of lumbar spinal fusion and is complicated by osteomyelitis (3) Chronic pain: Recently has been on Dilaudid for pain control (4) History of lumbar spinal fusion: (5) Cornea transplant recipient: Admission and Anticipated Discharge Date Admission Date: February 22, 2020 Subjective The patient was seen and examined in telemetry unit He was feeling much better and did not have any more episodes while he was on Keppra Keppra has been off since this morning and he has been having episodes of attacks as has been going on as an outpatient He is tired and very most frustrated and so is his Review of Systems Review of Systems: All systems reviewed and are unremarkable except as noted below Neurologic: + abnormal movements (As mentioned below as documented in additional comments) Episodes of headache on the left side followed by flexure stiffness involving upper and lower extremities , neck stiffness with bending to one side and closing of the eyes. Last for 30seconds to 45 seconds. Feels tired following that. No self injury and no incontinence during these episodes. Physical Exam Physical Exam: Lying in bed very anxious Constitutional: well developed and well nourished; no acute distress and not ill appearing Eyes: PERRL, conjunctivae normal, anicteric sclerae ENMT: external ear and nose normal, oropharynx normal Neck: trachea midline, no thyromegaly Respiratory: normal respiratory effort; no respiratory distress Auscultation: lungs clear to auscultation bilaterally Cardiovascular: Rate/Rhythm: regular rate and regular rhythm Heart Sounds: no murmur Gastrointestinal (Abdomen): Inspection/Auscultation: abdomen normal to in spection and normal bowel sounds; abdomen not distended Percussion/Palpation: abdomen soft; abdomen nontender Musculoskeletal: No acute arthritis involving any joints Neurologic: moves all extremities; no focal motor deficits Alert, awake and oriented x3. Psychiatric: Affect: + anxious affect Mood: + anxious mood Results & Data Results & Data ([facility]) Vital Signs (Past 12 Hours) Vital Signs Temp Pulse Pulse Resp BP Pulse Ox 02/23/20 12:12 36.7 C 78 18 109/70 95 02/23/20 08:13 36.4 C L 91 H 18 114/74 97 02/23/20 08:00 68 02/23/20 04:00 36.4 C L 70 18 120/79 96 Laboratory Results Short CBC 02/23/20 Range/Units 05:39 WBC 6.84 (4.8-10.8) K/uL Hgb 14.5 (14.0-18.0) g/dL Hct 42.8 (42-52) % Plt Count 219 (130-400) K/uL BMP 02/23/20 05:39 Sodium 141 Potassium 4.1 Chloride 110 H Carbon Dioxide 25 BUN 13 Creatinine 0.99 Glucose 111 H Calcium 8.4 L Medications Administered Current Inpatient Medications Acetaminophen (Tylenol) 650 mg PO Q4H PRN PRN Reason: Pain or Fever Stop: 03/23/20 17:38 Enoxaparin Sodium (Lovenox) 40 mg SQ HS [facility] Stop: 03/23/20 20:59 Last Admin: 02/22/20 21:02 Dose: 40 mg Documented by: Gadobutrol (Gadavist 65ml) 9.5 ml IV ONCE PRN PRN Reason: Interaction Checking Stop: 02/26/20 20:09 Last Admin: 02/22/20 20:11 Dose: 9.5 ml Documented by: Hydromorphone HCl (Dilaudid) 2 mg PO QID PRN PRN Reason: Pain Stop: 03/07/20 17:38 Lorazepam (Ativan) 1 mg in 2 mls @ 2 mls/min IV Q4H PRN PRN Reason: seizure Stop: 03/23/20 17:38 Last Admin: 02/22/20 23:18 Dose: 2 mls/min Documented by: Valproic Acid 250 mg/ Dextrose 52.5 mls @ 55 mls/hr IV BID [facility] Stop: 03/24/20 15:59 Prednisolone Acetate (Pred Forte 1%) [facility] Stop: 03/24/20 08:59 Last Admin: 02/23/20 09:22 Dose: 1 drops Documented by:
[2020-02-23] MEDS: VALPROATE SOD 250 MG in DEXTROSE 5% 50 ML IV SCH ×2 (16:22→21:20)
--- NOTE | 2020-02-23 17:33 | Electroencephalogram ---
EEG Procedure Note Date of Service February 23, 2020 Start / End Times Start Time: 3pm End Time: 4pm Referring Physician Dr Blankenship History seizure like events Home Medication List Home Medications Medication Instructions Recorded Confirmed Type hydromorphone 2 mg PO QID PRN 01/23/20 02/22/20 History prednisolone acetate 1 drp OPL QAM 01/23/20 02/22/20 History Smarty Pants Gummies 1 tab PO BID 02/22/20 02/22/20 History Inpatient Medication List Enoxaparin Sodium (Lovenox) 40 mg SQ HS [facility] Stop: 03/23/20 20:59 Last Admin: 02/22/20 21:02 Dose: 40 mg Documented by: [id number] Gadobutrol (Gadavist 65ml) 9.5 ml IV ONCE PRN PRN Reason: Interaction Checking Stop: 02/26/20 20:09 Last Admin: 02/22/20 20:11 Dose: 9.5 ml Documented by: [id number] Lorazepam (Ativan) 1 mg in 2 mls @ 2 mls/min IV Q4H PRN PRN Reason: seizure Stop: 03/23/20 17:38 Last Admin: 02/22/20 23:18 Dose: 2 mls/min Documented by: [id number] Valproic Acid 250 mg/ Dextrose 52.5 mls @ 55 mls/hr IV BID [facility] Stop: 03/24/20 15:59 Last Admin: 02/23/20 16:22 Dose: 55 mls/hr Documented by: [id number] Prednisolone Acetate (Pred Forte 1%) 1 drops OP QAM [facility] Stop: 03/24/20 08:59 Last Admin: 02/23/20 09:22 Dose: 1 drops Documented by: [id number] Discontinued Medications Levetiracetam 2,000 mg/ Sodium (Chloride) 270 mls @ 999 mls/hr IV NOW STA Stop: 02/22/20 15:07 Last Infusion: 02/22/20 15:48 Dose: 0 mls/hr Documented by: [id number] Admin: 02/22/20 15:23 Dose: 999 mls/hr Documented by: [id number] Levetiracetam 1,000 mg/ Sodium (Chloride) 110 mls @ 440 mls/hr IV BID [facility] Stop: 03/23/20 20:59 Last Infusion: 02/23/20 09:46 Dose: 0 mls/hr Documented by: [id number] Admin: 02/23/20 09:21 Dose: 440 mls/hr Documented by: [id number] Infusion: 02/22/20 21:22 Dose: 0 mls/hr Documented by: [id number] Admin: 02/22/20 21:01 Dose: 440 mls/hr Documented by: [id number] Lamotrigine (Lamictal) 25 mg PO QAM [facility] Stop: 03/24/20 10:14 Last Admin: 02/23/20 10:37 Dose: 25 mg Documented by: [id number] Lorazepam (Ativan) Confirm Administered Dose 2 mg .ROUTE .STK-MED ONE Stop: 02/22/20 14:46 Last Admin: 02/22/20 14:51 Dose: 1 mg Documented by: [id number] Miscellaneous (Patient's Height And/Or Weight Needed) 1 ea N/A Q2H [facility] Stop: 03/23/20 17:59 Last Admin: 02/22/20 18:06 Dose: Not Given Documented by: [id number] Description This is a 21 electrode EEG with a single channel dedicated to limited EKG. The electrodes were placed in accordance with the International 10-20 system. History: seizure like activity Rx: mila ativan Start/Stop: 3pm/4pm Attending reading: Patricia Craig EEG Description: EEG background: Background was predominantly 10-12 Hz alpha rhythm. A well formed 10-11 Hz posterior dominant rhythm was observed. The EEG is continuous. There is variability and reactivity present. Activation and reactivity: Photic stimulation performed without any abnormalities noted. No photic driving observed. Hyperventilation was not performed. Sleep: Patient did not enter drowsiness or sleep during the recording. Epileptiform discharges: No epileptiform discharges were observed. Rhythmic and periodic patterns: None Seizures: None. An event lasting approximately 20 minutes was captured at the beginning of the recording with no EEG correlate. Impression: This was a normal awake EEG. No seizures or epileptiform discharges were seen despite having a clinical event at the beginning of the recording, suggesting PNES. He should be referred to the EMU for further spell classification. [facility] Procedure Codes Indication for Procedure (1) Seizure-like activity: Neurology Neurology: 12941 EEG extend monitoring 41-60min
[2020-02-23] MEDS: ENOXAPARIN INJ 40 MG/0.4 ML SYR SQ SCH (21:21)
[2020-02-24] MEDS: prednisoLONE acetate 1% OP SUSP 5 ML BTL OP SCH (08:26)
[2020-02-24] MEDS: VALPROATE SOD 250 MG in DEXTROSE 5% 50 ML IV SCH (08:37)
[2020-02-24 11:12] LABS: Basophils # (auto) 0.03 K/uL (0-0.2); Basophils % (auto) 0.4 %; Eosinophils # (auto) 0.09 K/uL (0-0.5); Eosinophils % (auto) 1.2 %; Hemoglobin 15.1 g/dL (14.0-18.0); Immature Granulocytes # (auto) 0.03 K/uL (0.00-0.02); Immature Granulocytes % (auto) 0.4 %; Lymphocytes # (auto) 2.13 K/uL (1.2-3.4); Lymphocytes % (auto) 29.1 %; Mean Corpuscular Hemoglobin 30.3 pg (25-34); Mean Corpuscular Hgb Conc 34.3 g/dL (32-36); Mean Corpuscular Volume 88.4 fL (80-100); Mean Platelet Volume 9.4 fL (7.4-10.4); Monocytes # (auto) 0.63 K/uL (0.11-0.59); Monocytes % (auto) 8.6 %; Neutrophils % (auto) 60.3 %; Platelet Count 219 K/uL (130-400); RDW Coefficient of Variation 12.9 % (11.5-14.5); RDW Standard Deviation 41.5 fL (36.4-46.3); Red Blood Count 4.98 M/uL (4.7-6.1); White Blood Count 7.31 K/uL (4.8-10.8)
[2020-02-24 11:29] LABS: BUN Creatinine Ratio 11.7 (10-20); Calcium 8.8 mg/dl (8.5-10.1); Creatinine Clr Calc Pharmacy 69.9 ml/min; Est GFR (African American) 70.6; Est GFR (Non-African American) 60.9; Potassium 4.2 mmol/L (3.5-5.1)
--- NOTE | 2020-02-24 11:56 | Hospitalist Progress Note ---
Date of Service February 24, 2020 Assessment & Plan (1) Seizure-like activity: -Patient presenting from home for evaluation of seizure-like activity; " episodes" have been ongoing for the past few months however today was the first time patient had altered mental status -Outpatient work-up has included echo, EEG, brain MRI which were all unremarkable -On episode observed by me this afternoon (episodes of headache usually on the left side followed by flexural stiffness involving upper and lower extremities , neck stiffness with bending to one side and tightly closed eyes with possible loss of consciousness. Last for 30seconds to 45 seconds. Feels tired following that without any typical post ictal state. No self injury and no incontinence during these episodes.) -CT of the head and MRI of the head have been negative for any significant findings -Could be secondary to pseudoseizure, seizure disorder, generalized anxiety disorder, panic attacks -Episode is triggered my consuming malt Barley- has an appointment with Retail Store Clerk as an op -Received IV Keppra 2 g IV in the ED and this was continued at 1 g IV twice daily until this morning of 02/23/2020 -Seizure precautions -[facility] neurologist Dr. Chavarria cannot see this patient -[facility] neurologist has been consulted, appreciate input and recommendation -Keppra has been discontinued and Lamictal was chosen and later on Depakote to 250 mg IV twice daily as suggested -No more Ativan -EEG for 1 hour-This was a normal awake EEG. No seizures or epileptiform discharges were seen despite having a clinical event at the beginning of the recording, suggesting PNES. He should be referred to the EMU for further spell classification. -If there is no improvement of his condition,most likely he will be transferred to [place] as per the -Has had another episode of seizure-like activity last night associated with profuse sweating -Discussed with the neurologist and advised the patient should be transferred to tertiary care center for further evaluation and monitoring for continuous EEG -Discussed with the patient and he was agreeable to go to [place] Transfer to [place] Discussed with the neurologist in [place] Dr. Mamadou Mercado and will be transferred to [place] for further management of his condition (2) History of osteomyelitis: History of lumbar spinal fusion and is complicated by osteomyelitis (3) Chronic pain: Recently has been on Dilaudid for pain control (4) History of lumbar spinal fusion: (5) Cornea transplant recipient: Admission and Anticipated Discharge Date Admission Date: February 22, 2020 Subjective The patient was seen and examined in telemetry unit He was feeling much better and did not have any more episodes while he was on Keppra Keppra has been off since this morning and he has been having episodes of attacks as has been going on as an outpatient He is tired and very most frustrated and so is his 02/24/2020 The patient was seen and examined in telemetry unit He has had an episode last night with profuse sweating No self injury and no incontinence Has been feeling a lot better this morning and participated in physical therapy without any problem Review of Systems Review of Systems: All systems reviewed and are unremarkable except as noted below Neurologic: + abnormal movements (As mentioned below as documented in additional comments) Episodes of headache on the left side followed by flexure stiffness involving upper and lower extremities , neck stiffness with bending to one side and closing of the eyes. Last for 30seconds to 45 seconds. Feels tired following that. No self injury and no incontinence during these episodes. Physical Exam Physical Exam: Lying in bed very anxious Constitutional: well developed and well nourished; no acute distress and not ill appearing Eyes: PERRL, conjunctivae normal, anicteric sclerae ENMT: external ear and nose normal, oropharynx normal Neck: trachea midline, no thyromegaly Respiratory: normal respiratory effort; no respiratory distress Auscultation: lungs clear to auscultation bilaterally Cardiovascular: Rate/Rhythm: regular rate and regular rhythm Heart Sounds: no murmur Gastrointestinal (Abdomen): Inspection/Auscultation: abdomen normal to inspection and normal bowel sounds; abdomen not distended Percussion/Palpation: abdomen soft; abdomen nontender Neurologic: moves all extremities; no focal motor deficits Psychiatric: Affect: + anxious affect Mood: + anxious mood Results & Data Results & Data ([facility]) Vital Signs (Past 12 Hours) Vital Signs Temp Pulse Pulse Resp BP Pulse Ox 02/24/20 11:18 36.7 C 91 H 20 130/83 96 02/24/20 09:00 72 02/24/20 07:46 36.6 C 68 19 127/82 96 02/24/20 02:48 36.4 C L 82 18 120/80 94 02/24/20 00:23 80 02/23/20 23:54 36.7 C 72 20 130/77 94 Laboratory Results Short CBC 02/24/20 Range/Units 10:55 WBC 7.31 (4.8-10.8) K/uL Hgb 15.1 (14.0-18.0) g/dL Hct 44.0 (42-52) % Plt Count 219 (130-400) K/uL BMP 02/24/20 10:55 Sodium 141 Potassium 4.2 Chloride 107 Carbon Dioxide 24 BUN 15 Creatinine 1.25 Glucose 130 H Calcium 8.8 Medications Administered Current Inpatient Medications Acetaminophen (Tylenol) 650 mg PO Q4H PRN PRN Reason: Pain or Fever Stop: 03/23/20 17:38 Enoxaparin Sodium (Lovenox) 40 mg SQ HS KENZIE Stop: 03/23/20 20:59 Last Admin: 02/23/20 21:21 Dose: 40 mg Documented by: Gadobutrol (Gadavist 65ml) 9.5 ml IV ONCE PRN PRN Reason: Interaction Checking Stop: 02/26/20 20:09 Last Admin: 02/22/20 20:11 Dose: 9.5 ml Documented by: Hydromorphone HCl (Dilaudid) 2 mg PO QID PRN PRN Reason: Pain Stop: 03/07/20 17:38 Lorazepam (Ativan) 1 mg in 2 mls @ 2 mls/min IV Q4H PRN PRN Reason: seizure Stop: 03/23/20 17:38 Last Admin: 02/22/20 23:18 Dose: 2 mls/min Documented by: Valproic Acid 250 mg/ Dextrose 52.5 mls @ 55 mls/hr IV BID KENZIE Stop: 03/24/20 15:59 Last Infusion: 02/24/20 09:46 Dose: Infused Documented by: Prednisolone Acetate (Pred Forte 1%) 1 drops OP QAM [facility]ENZIE Stop: 03/24/20 08:59 Last Admin: 02/24/20 08:26 Dose: 1 drops Documented by:
--- NOTE | 2020-02-24 12:21 | Discharge Summary ---
Date of Service February 24, 2020 Admission HPI Per Admitting Provider 64-year-old male with PMH lumbar spinal fusion complicated by osteomyelitis in 2002, BPH, chronic pain, and other problems listed below who presents the ED for evaluation of seizure-like symptoms. Patient has been having " episodes" for the past few months. Patient reports his was diagnosed with influenza A in September and he shortly after developed similar symptoms and was suspected to have the same. Patient reports that since that time, he has been having episodes that he describes as a vibrating sensation all over his body followed by palpitations and hypertension, electrical shocks scattered over his body, and severe chills. Patient also notes having episodes while sleeping that he ends up on the floor. Patient denies any loss of bowel or bladder function. No tongue biting. Typically he has not had any altered mental status until today. Patient reports symptoms with sometimes follow eating. He felt as though maybe he had an allergy to barley malt. He is also seen in association with physical exertion. Patient had been on chronic oxycodone until August 2019 when this was changed to Dilaudid. Patient reports he typically only uses medication 2-3 times per week. He has not had any in about 1 week. He also had been on long- term Klonopin which was discontinued in August as well. Patient notes taking 1 dose of Klonopin a couple of weeks ago and reports he had no symptoms for 1 wee k. Today, patient reports he had climbed the stairs several times. Patient reports he does not remember anything following and his provides the rest of the history. She reports that her started to twitch his head to the left and became stiff all over. She reports his eyes had a glazed over look and he would not respond to her. She reports this lasted for about 10 minutes and then patient was able to talk to her. Patient then presented to the ED for further evaluation. He then had an additional 3-4 similar episodes while in the ER. Patient received Ativan 2 mg IV and was loaded with Keppra 2 g IV. Patient currently reports complete resolution of symptoms. Of note, patient's outpatient work-up has included echocardiogram, EEG (02/14/2020), brain MRI (02/18/2020) which were all unremarkable. Admission Exam Per Admitting Provider Constitutional: WD/WN, vitals as above Eyes: PERRL, conjunctivae normal, anicteric sclerae ENMT: external ear and nose normal, oropharynx normal Respiratory: normal respiratory effort, lungs clear to auscultation Cardiovascular: Rate/Rhythm: regular rate and regular rhythm Vessels: normal peripheral pulses Extremities: no edema Gastrointestinal (Abdomen): normal bowel sounds, soft, nontender, no hepatosplenomegaly Musculoskeletal: no cyanosis or clubbing, extremities motor strength 5/5 Skin: no rashes, warm and dry Neurologic: PERRL, EOMI, accommodation nl, no face palsy, no dysarthria moves all extremities and awake; no focal motor deficits Motor/Sensory: no pronator drift Cranial Nerves: tongue midline Coordination: normal [id number] test and normal [id number] test Psychiatric: A+Ox3, euthymic affect Principal Diagnosis Seizure-like activities with frequent episodes, pseudoseizures Discharge Exam Constitutional well developed and well nourished; no acute distress and not ill appearing Eyes PERRL, conjunctivae normal, anicteric sclerae ENMT external ear and nose normal, oropharynx normal Neck trachea midline, no thyromegaly Respiratory normal respiratory effort; no respiratory distress Auscultation: lungs clear to auscultation bilaterally Cardiovascular Rate/Rhythm: regular rate and regular rhythm Heart Sounds: no murmur Gastrointestinal (Abdomen) Inspection/Auscultation: abdomen normal to inspection and normal bowel sounds; abdomen not distended Percussion/Palpation: abdomen soft; abdomen nontender Neurologic moves all extremities; no focal motor deficits Psychiatric Affect: + anxious affect Mood: + anxious mood Discharge Data Allergies Allergy/AdvReac Type Severity Reaction Status Date / Time Iodinated Contrast Media Allergy Intermediate Shortness Unverified 02/22/20 14:22 of Breath Consultations 02/22/20 15:47 ED Decision to Admit Stat 02/22/20 17:39 Consult Neurology Routine 02/23/20 07:37 Consult Neurology Routine 02/23/20 10:34 Consult Psychiatry Routine 02/24/20 11:53 Burn CD for patient Stat Ordered Studies 02/22/20 13:56 CT head/brain wo con Stat 02/22/20 17:39 MR brain seizure wo/w con Routine Hospital Course (1) Seizure-like activity: -Patient presenting from home for evaluation of seizure-like activity; " episodes" have been ongoing for the past few months however today was the first time patient had altered mental status -Outpatient work-up has included echo, EEG, brain MRI which were all unremarkable -On episode observed by me this afternoon (episodes of headache usually on the left side followed by flexural stiffness involving upper and lower extremities , neck stiffness with bending to one side and tightly closed eyes with possible loss of consciousness. Last for 30seconds to 45 seconds. Feels tired following that without any typical post ictal state. No self injury and no incontinence during these episodes.) -CT of the head and MRI of the head have been negative for any significant findings -Could be secondary to pseudoseizure, seizure disorder, generalized anxiety disorder, panic attacks -Episode is triggered my consuming malt Barley- has an appointment with [employer] Teacher as an op -Received IV Keppra 2 g IV in the ED and this was continued at 1 g IV twice daily until this morning of 02/23/2020 -Seizure precautions -[facility] neurologist Dr. Chavarria cannot see this patient -[facility] neurologist has been consulted, appreciate input and recommendation -Keppra has been discontinued and Lamictal was chosen and later on Depakote to 250 mg IV twice daily as suggested -No more Ativan -EEG for 1 hour-This was a normal awake EEG. No seizures or epileptiform discharges were seen despite having a clinical event at the beginning of the recording, suggesting PNES. He should be referred to the EMU for further spell classification. -If there is no improvement of his condition,most likely he will be transferred to [place] as per the -Has had another episode of seizure-like activity last night associated with profuse sweating -Discussed with the neurologist and advised the patient should be transferred to tertiary care center for further evaluation and monitoring for continuous EEG -Discussed with the patient and he was agreeable to go to [place] Transfer to [place] Discussed with the neurologist in [place] Dr. Mamadou Mercado and will be transferred to [place] for further management of his condition (2) History of osteomyelitis: History of lumbar spinal fusion and is complicated by osteomyelitis (3) Chronic pain: Recently has been on Dilaudid for pain control (4) History of lumbar spinal fusion: (5) Cornea transplant recipient: Total Time Total Time Spent Total Time Spent (In Minutes): 45 minutes Total Time Includes: Examination of the Patient, Discharge Planning, Medication Reconciliation and Communication With Other Providers Discharge Plan Discharge Items Patient Disposition: Transfer Acute Care Hospital Reason For Visit: ? SEIZURE Discharge Diagnosis: Seizure-like activities with frequent episodes, pseudoseizures Condition on Discharge: Good Activity: As commented below Activity Comment: Will be transferred to tertiary care center Non-emergency contact: Primary Care Provider Call non-emergency contact if: you have any medication questions and your symptoms worsen Follow-up/Referrals: Bashir Sanders, DO [Primary Care Provider] - (Please make an appointment with your primary care physician within 1 week following discharge from the hospital) Diet: Regular Addtl Attending Provider Instructions: The patient was transferred to [place] for further evaluation and management All of his inpatient medications were continued on discharge:: Acetaminophen (Tylenol) 650 mg PO Q4H PRN PRN Reason: Pain or Fever Stop: 03/23/20 17:38 Enoxaparin Sodium (Lovenox) 40 mg SQ HS [facility] Stop: 03/23/20 20:59 Last Admin: 02/23/20 21:21 Dose: 40 mg Documented by: Gadobutrol (Gadavist 65ml) 9.5 ml IV ONCE PRN PRN Reason: Interaction Checking Stop: 02/26/20 20:09 Last Admin: 02/22/20 20:11 Dose: 9.5 ml Documented by: Hydromorphone HCl (Dilaudid) 2 mg PO QID PRN PRN Reason: Pain Stop: 03/07/20 17:38 Lorazepam (Ativan) 1 mg in 2 mls @ 2 mls/min IV Q4H PRN PRN Reason: seizure Stop: 03/23/20 17:38 Last Admin: 02/22/20 23:18 Dose: 2 mls/min Documented by: Valproic Acid 250 mg/ Dextrose 52.5 mls @ 55 mls/hr IV BID [facility] Stop: 03/24/20 15:59 Last Infusion: 02/24/20 09:46 Dose: Infused Documented by: Prednisolone Acetate (Pred Forte 1%) 1 drops OP QAM [facility] Stop: 03/24/20 08:59 Last Admin: 02/24/20 08:26 Dose: 1 drops Documented by: Pending Studies at Discharge: No Stand-Alone Forms: [employer] Skilled Items Patient informed of condition?: Yes DNR: No Discharge Level of Care: Other Communicable Disease: No Discharge Prognosis: Stable Lines: None Urinary Catheter: No Medications and DC Order Prescriptions: Continued hydromorphone 2 mg tablet 2 mg PO QID PRN (Reason: Pain) RF: 0 prednisolone acetate 1 % drops,suspension 1 drp OPL QAM RF: 0 Smarty Pants Gummies 1 tab PO BID RF: 0 Discharge Orders: Discharge Order (Routine); Ordered 02/24/20 Ordered By: Monty Blankenship Admission Data Admit Date/Time: 02/22/20 15:55 Attending Provider: Monty Blankenship Admit Provider: Monty Blankenship Primary Care Provider: Bashir Sanders Other Providers: Monty Blankenship ; Omega Chavarria ; Narayan Torres ; Samuel Gonzales Christina R. ; Rowena Mosher ; Elmer Munoz ; Blaise Golden
--- NOTE | 2020-02-24 12:34 | Neurology Progress Note ---
Date of Service February 24, 2020 Assessment & Plan (1) Seizure-like activity: Gui Webster is a 64 yo man w/ PMH of chronic pain on opiates, history of osteomyelitis of the spine, history of prostatitis, BPH, history of ORIF on right leg and recent work-up by Nicolás for syncope who presents to [facility] for altered mental status and possible seizures. # Seizure like activity: strong suspicion for PNES/pseudoseizures particularly given semiology as witnessed by primary team, less likely frontal lobe epilepsy. There is also some c/f benzo seeking behavior given that he repeatedly asked for ativan or klonopin and endorsed that only this was helping with his symptoms of "internal tremors"/vibration sensation. - recommend transfer to higher level of care for continuous EEG for spell capture/classification - semiology is not c/w seizure, but he did note to 2 people that he had a headache a/w events. Recommend starting depakote 250mg bid as this could help with any migrainous features - he needs outpatient neurology follow up (reports that he will f/u with Dr Esparza) Thank you for this interesting consult. Plan of care discussed with primary team. Please call or text with questions. He is safe from a neurological standpoint for discharge. Admission and Anticipated Discharge Date Admission Date: February 22, 2020 Subjective Had at least 2 further episodes of seizure-like activity overnight despite getting Ativan, Keppra, low-dose Lamictal and Depakote. He does report that he feels like the Depakote has been helping with some of the internal tremor or vibration sensation this morning. Discussed with him that since he has had ongoing episodes and we only captured part of an episode on EEG yesterday, recommend that he be transferred to higher level care for continuous monitoring. He and his are in agreement for this plan. Review of Systems Review of Systems: 14 point review of systems completed and negative except as in HPI. Results & Data ([facility]) Vital Signs (Past 12 Hours) Vital Signs Temp Pulse Pulse Resp BP Pulse Ox 02/24/20 11:18 36.7 C 91 H 20 130/83 96 02/24/20 09:00 72 02/24/20 07:46 36.6 C 68 19 127/82 96 02/24/20 02:48 36.4 C L 82 18 120/80 94 Exam (Neuro) Physical Exam: General Exam: GEN: NAD, sitting in bed. HEENT: No conjunctival injection, no rhinorrhea. CV: RRR, no peripheral edema PULM: Nonlabored respirations on room air. Neuro Exam: MS: Awake and Alert. Oriented to person, place, and date. Speech fluent and appropriate without dysarthria or paraphasic errors. Language intact including naming, comprehension, repetition. Cognition and memory grossly intact. Attention intact. No neglect. +tangential, grandiose thinking CN: Visual [place] full. No extinction to double simultaneous stimuli. No optic disc edema on fundoscopic exam. PERRLA OU. EOMI without nystagmus. Facial sensation intact to LT. Facial muscles full and symmetric. Hearing intact to conversation. Uvula midline with symmetric palatal elevation. Shoulder shrug normal. Tongue midline. MOTOR: Normal bulk and tone. No pronator drift. BUE strength 5/5 at deltoids, biceps, triceps, wrist flexors and extensors, and hand grasp bilaterally. BLE strength 5/5 at iliopsoas, hamstrings, quadriceps, tibialis anterior, and gastrocnemius bilaterally. REFLEXES: 1+ at biceps, triceps, brachioradialis, 1+ patella and absent Achilles bilaterally. Flexor plantar responses bilaterally. SENSORY: Intact to LT without extinction to double simultaneous stimuli. Vibration and pinprick intact throughout. COORDINATION: No dysmetria or ataxia on [id number] bilaterally. Normal Annel bilaterally. GAIT: deferred given physical status PG Care Time/CCT Total # of Minutes Spent Total Time Spent with Patient: Total time spent is greater than 50% in coordination of care (as documented) at patient's floor/unit and/or counseling patient: Coding Level of Care Code 58954 Subseq Hosp Care Lvl 3 Diagnoses Seizure-like activity R56.9
== END 2020-02-24 14:07 | disposition short-term general hospital (02) ==
LOC: 2S 13:51 → ED 13:51 → 2S 17:18